=== PATIENT | female | born 1935 | race Caucasian/White ===

== ENCOUNTER 2018-05-24 10:47 | Outpatient (CLI) | payer MEDICARE, BC ==
[2018-05-24] MEDS ORDERED: IOVERSOL 320 100 ML VIAL IVP ONE ×2 (11:01→12:59)
[2018-05-24] MEDS ORDERED: IOVERSOL 320 50 ML VIAL ONE (11:01)
[2018-05-24] MEDS ORDERED: IOVERSOL 320 50 ML VIAL PO ONE (13:19)
--- NOTE | 2018-05-24 13:47 | CT Report ---
Reason: ABDOMINAL DISTENSION (GASEOUS) Procedure Date: 05/24/2018 Accession Number: [id number] / [id number] Procedure: CT - Abdomen/Pelvis W/ CPT Code: FULL RESULT: EXAM: CT ABDOMEN AND PELVIS EXAM DATE: 05/24/2018 12:21 PM. CLINICAL HISTORY: ABDOMINAL DISTENSION (GASEOUS). COMPARISONS: ABD/PEL 02/24/2007 10:17 AM. TECHNIQUE: Routine helical CT imaging was performed through the abdomen and pelvis. IV contrast: 85 mL Optiray 320. Enteric contrast: Yes. Reconstructions: Coronal and sagittal. In accordance with CT protocol optimization, one or more of the following dose reduction techniques were utilized for this exam: automated exposure control, adjustment of mA and/or KV based on patient size, or use of iterative reconstructive technique. FINDINGS: Lung Bases: Mild amount of scarring versus atelectasis at the left lung base. Liver: Mild periportal edema. Gallbladder/Bile Ducts: Cholelithiasis and mild intrahepatic biliary ductal dilation with the CBD measuring up to 1.1 cm, greater than normal. Spleen: Normal. Pancreas: The pancreatic body is relatively atrophic. The pancreatic head is difficult to evaluate due to lack of fat planes. Adrenal Glands: Normal. Kidneys: Normal. No masses or hydronephrosis. Peritoneal Cavity/Bowel: No free fluid, free air or adenopathy. No masses or acute inflammatory process. Pelvic Organs: Evaluation limited by streak artifact from orthopedic hardware. The bladder and visualized pelvic organs are within normal limits. Vasculature: No aneurysms or other significant abnormality. Bones: Moderate to severe levoconvex lumbar scoliosis centered about L2. 7 mm anterolisthesis of L4 on L5 with left-sided pars defect. Bilateral hip arthroplasty. No aggressive osseous lesions are detected. Other: None. IMPRESSION: Biliary ductal dilation and cholelithiasis. Correlate to laboratory markers to determine whether workup for choledocholithiasis or other distal biliary obstruction is warranted. RADIA
== END 2018-05-24 10:48 | disposition home or self-care (01) ==
LOC: DI 10:47
PROVIDERS: ATTEND Physician Assistant
DX: K80.20 Calculus of gallbladder without cholecystitis without obstruction (principal)
CPT/HCPCS: 74177; Q9967

== ENCOUNTER 2019-05-21 16:28 | Outpatient (CLI) | payer MEDICARE, BC ==
--- NOTE | 2019-05-22 14:26 | XRAY Report ---
Reason: PAIN IN RT KNEE Procedure Date: 05/21/2019 Accession Number: [id number] / [id number] Procedure: XR - Knee 3 View RT CPT Code: Final Report FULL RESULT: EXAM: RIGHT KNEE RADIOGRAPHY EXAM DATE: 05/21/2019 04:54 PM. CLINICAL HISTORY: PAIN IN RT KNEE. History of meniscus surgery. COMPARISON: None. TECHNIQUE: 3 views. FINDINGS: Bones: Normal. No fractures or bone lesions. Joints: Mild medial tibiofemoral compartment and patellofemoral compartment joint space narrowing and osteophyte formation. No subluxation. No effusion. Soft Tissues: Normal. No soft tissue swelling. IMPRESSION: Mild medial tibiofemoral compartment and patellofemoral compartment right knee osteoarthritis. RADIA
== END 2019-05-21 16:29 | disposition home or self-care (01) ==
LOC: DI 16:28
PROVIDERS: ATTEND Physician Assistant
DX: M17.11 Unilateral primary osteoarthritis, right knee (principal)

== ENCOUNTER 2019-07-09 16:17 | Outpatient (CLI) | payer MEDICARE, BC | END 2019-07-09 16:18 | disposition home or self-care (01) | LOC: COV 16:17 | PROVIDERS: ATTEND Family Medicine | DX: R05 Cough (principal); R50.9 Fever, unspecified | CPT/HCPCS: 81599; U0002 ==

== ENCOUNTER 2020-05-26 10:38 | Day surgery (SDC) | payer MEDICARE, BC ==
[2020-05-26] MEDS ORDERED: LACTATED RINGERS 1,000 ML IV ONE (11:11)
[2020-05-26] MEDS ORDERED: MIDAZOLAM 2 MG/2 ML VIAL ONE ×2 (13:21→13:48)
[2020-05-26] MEDS ORDERED: fentaNYL 100 MCG/2 ML VIAL ONE ×2 (13:22→13:51)
[2020-05-26] MEDS ORDERED: LACTATED RINGERS 150 ML IV ONE (13:58)
[2020-05-26 15:44] VITALS: BP 116/49
== END 2020-05-26 10:39 | disposition home or self-care (01) ==
LOC: SDS 10:38
PROVIDERS: ATTEND Surgery
PROC: 0DBP8ZX Excision of Rectum, Via Natural or Artificial Opening Endoscopic, Diagnostic (ICD-10-PCS; principal; 2020-05-26 11:30)
DX: K62.5 Hemorrhage of anus and rectum (principal); K62.3 Rectal prolapse; D12.8 Benign neoplasm of rectum; R15.9 Full incontinence of feces; K21.9 Gastro-esophageal reflux disease without esophagitis; D64.9 Anemia, unspecified
CPT/HCPCS: 45380; J7120

== ENCOUNTER 2020-06-22 15:29 | Outpatient (CLI) | payer MEDICARE, BC ==
[2020-06-22 16:02] LABS: BASOPHILS # (AUTO) 0.1 10^3/uL (0.0-0.1); EOSINOPHILS # (AUTO) 0.3 10^3/uL (0.0-0.7); EOSINOPHILS % (AUTO) 3.3 %; HCT - HEMATOCRIT 40.4 % (37.0-47.0); HGB - HEMOGLOBIN 13.1 g/dL (12.0-16.0); LYMPHOCYTES # (AUTO) 1.9 10^3/uL (1.5-3.5); LYMPHOCYTES % (AUTO) 23.8 %; MEAN CORPUSCULAR HEMOGLOBIN 32.7 pg (27.0-31.0); MEAN CORPUSCULAR HGB CONC 32.4 g/dL (32.0-36.0); MEAN CORPUSCULAR VOLUME 100.7 fL (81.0-99.0); MEAN PLATELET VOLUME 9.3 fL (7.9-10.8); MONOCYTES # (AUTO) 0.7 10^3/uL (0.0-1.0); MONOCYTES % (AUTO) 8.8 %; NEUTROPHILS # (AUTO) 5.1 10^3/uL (1.5-6.6); NEUTROPHILS % (AUTO) 62.9 %; PLT - PLATELET COUNT 230 10^3/uL (130-450); RED BLOOD COUNT 4.01 10^6/uL (4.20-5.40); RED CELL DISTRIBUTION WIDTH 14.4 % (12.0-15.0); WHITE BLOOD COUNT 8.1 x10^3/uL (4.8-10.8)
[2020-06-22 16:14] LABS: ALBUMIN 4.1 g/dL (3.2-5.5); ALBUMIN/GLOBULIN RATIO 1.3 (1.0-2.2); BILIRUBIN,TOTAL 0.7 mg/dL (0.2-1.0); CALCIUM 9.6 mg/dL (8.5-10.3); CREATININE 0.9 mg/dL (0.4-1.0); POTASSIUM 4.2 mmol/L (3.5-5.0); TOTAL PROTEIN 7.3 g/dL (6.7-8.2)
[2020-06-22 16:36] LABS: INR 0.9 (0.8-1.2); PT - PROTHROMBIN TIME 10.5 secs (9.9-12.6)
== END 2020-06-22 15:30 | disposition home or self-care (01) ==
LOC: LAB 15:29
PROVIDERS: ATTEND Surgery
DX: K62.5 Hemorrhage of anus and rectum (principal)
CPT/HCPCS: 80053; 85025; 85610

== ENCOUNTER 2020-07-01 09:48 | Outpatient (CLI) | payer MEDICARE, BC ==
[2020-07-01] MEDS ORDERED: GADOBUTROL 10 MMOL/10 ML VIAL ONE (10:33)
[2020-07-01] MEDS ORDERED: GADOBUTROL 10 MMOL/10 ML VIAL IVP ONE (13:16)
--- NOTE | 2020-07-01 17:04 | MRI Report ---
PROCEDURE: Pelvis W/WO INDICATIONS: RECTAL POLYP TECHNIQUE: Coronal HASTE, sagittal T2 FSE, axial T1 FSE, axial and coronal nonbreath-hold T2 FSE. Axial dynamic VIBE during administration of contrast. Post-contrast axial and coronal VIBE/2-D FLASH with fat sat uration from the iliac crests to the symphysis. Optional diffusion weighted imaging and ADC may be p erformed. COMPARISON: CT abdomen pelvis 05/24/2018 FINDINGS: Image quality: Quite degraded secondary to extensive artifact from bilateral hip arthroplasty compone nts. Postcontrast sequences were nondiagnostic. Diffusion imaging was not performed.. Rectum: A few sagittal sequences raise the possibility of a partially polypoid and partially eccentric sessil e rectal mass. Polypoid component arises from the 11 to 12:00 position, and asymmetric wall thickenin g is seen from the 2 to 5:00 position along the left lateral wall. No dominant mucinous component. En tire craniocaudal length of the abnormality is 3.7 cm. Distance to the anal verge is about 3 cm and i t arises at the top of sphincter complex at the anorectal junction. It is predominantly below the ant erior peritoneal reflection and tumor is just above the puborectalis sling. T staging: Depth of extramural invasion: 0 mm. Extramural vascular invasion: None Pelvic organ involvement: Genitourinary: Fascial plane at the rectovaginal septum appears maintained the is extremely thin. Pelvic sidewall (obturator internus, piriformis, ischiococcygeus muscles): None Pelvic floor (pubococcygeus, iliococcygeus, puborectalis, levator plate): Mild pelvic floor prolapse Sacrum: None Vessels (internal and external iliac arteries and veins): Normal Nerves (lumbosacral nerve roots): None Regional lymph nodes (mesorectal, inguinal, iliac): None IMPRESSION: 1. Limited study secondary to hip arthroplasty artifact. 2. Possible low rectal tumor as described with T staging of likely 1-2. This could possibly represent redundant mucosa as postcontrast images were nondiagnostic. Correlation with colonoscopy report and exam is recommended. Reviewed by: Julissa Resendez MD on 07/01/2020 5:02 PM PST Approved by: Julissa Resendez MD on 07/01/2020 5:02 PM PST Station ID: [id number]
== END 2020-07-01 09:49 | disposition home or self-care (01) ==
LOC: DI 09:48
PROVIDERS: ATTEND Surgery
DX: K62.1 Rectal polyp (principal)
CPT/HCPCS: 72197; A9585

== ENCOUNTER 2020-07-07 14:27 | Outpatient (CLI) | payer MEDICARE, BC ==
[2020-07-07 15:08] LABS: BASOPHILS # (AUTO) 0.1 10^3/uL (0.0-0.1); BASOPHILS % (AUTO) 0.7 %; EOSINOPHILS # (AUTO) 0.3 10^3/uL (0.0-0.7); EOSINOPHILS % (AUTO) 3.4 %; HCT - HEMATOCRIT 37.6 % (37.0-47.0); HGB - HEMOGLOBIN 12.6 g/dL (12.0-16.0); LYMPHOCYTES # (AUTO) 1.8 10^3/uL (1.5-3.5); LYMPHOCYTES % (AUTO) 23.8 %; MEAN CORPUSCULAR HEMOGLOBIN 32.9 pg (27.0-31.0); MEAN CORPUSCULAR HGB CONC 33.5 g/dL (32.0-36.0); MEAN CORPUSCULAR VOLUME 98.2 fL (81.0-99.0); MEAN PLATELET VOLUME 9.2 fL (7.9-10.8); MONOCYTES # (AUTO) 0.6 10^3/uL (0.0-1.0); MONOCYTES % (AUTO) 8.4 %; NEUTROPHILS # (AUTO) 4.8 10^3/uL (1.5-6.6); NEUTROPHILS % (AUTO) 63.4 %; PLT - PLATELET COUNT 216 10^3/uL (130-450); RED BLOOD COUNT 3.83 10^6/uL (4.20-5.40); RED CELL DISTRIBUTION WIDTH 14.7 % (12.0-15.0); WHITE BLOOD COUNT 7.6 x10^3/uL (4.8-10.8)
[2020-07-07 15:16] LABS: INR 0.9 (0.8-1.2); PT - PROTHROMBIN TIME 10.5 secs (9.9-12.6)
[2020-07-07 15:23] LABS: ALBUMIN 3.9 g/dL (3.2-5.5); ALBUMIN/GLOBULIN RATIO 1.3 (1.0-2.2); BILIRUBIN,TOTAL 0.8 mg/dL (0.2-1.0); CALCIUM 9.5 mg/dL (8.5-10.3); CREATININE 0.9 mg/dL (0.4-1.0); POTASSIUM 3.9 mmol/L (3.5-5.0); TOTAL PROTEIN 6.8 g/dL (6.7-8.2)
== END 2020-07-07 14:28 | disposition home or self-care (01) ==
LOC: LAB 14:27
PROVIDERS: ATTEND Surgery
DX: Z01.812 Encounter for preprocedural laboratory examination (principal); K62.5 Hemorrhage of anus and rectum; K62.89 Other specified diseases of anus and rectum; Z20.822 Contact with and (suspected) exposure to COVID-19
CPT/HCPCS: 36415; 80053; 85025; 85610; U0004

== ENCOUNTER 2020-07-09 08:55 | Observation (INO) | payer MEDICARE, BC ==
[2020-07-09] MEDS ORDERED: metroNIDAZOLE 500 MG/100 ML 500 MG/100 ML BAG ONE (09:07)
[2020-07-09] MEDS ORDERED: CIPROFLOXACIN 400 MG/200 ML 400 MG/200 ML BAG IV ONE (09:08)
[2020-07-09] MEDS ORDERED: BUPIVACAINE 0.5% PF 30 ML VIAL ONE (09:26)
[2020-07-09] MEDS ORDERED: LACTATED RINGERS 1,000 ML IV ONE (09:43)
--- NOTE | 2020-07-09 10:17 | ANESTHESIA ---
Pre-Anesthesia VS, & Labs - Diagnosis rectal mass - Procedure transanal endoscopic polypectomy Vital Signs: Temp Pulse Resp BP Pulse Ox 36.8 C 79 18 163/79 H 95 07/09/20 09:00 07/09/20 09:00 07/09/20 09:00 07/09/20 09:00 07/09/20 09:00 Height: 5 ft 1 in Weight (kg): 51.5 kg Body Mass Index: 21.4 BMI Classification: Healthy weight - NPO >8 hours - Is Patient ?: No Home Medications and Allergies Estrodial 1 mg PO DAILY MDD 1 10/13/14 Levothyroxine Sodium 50 mcg PO DAILY 10/13/14 Montelukast [Singulair] 10 mg PO DAILY 10/13/14 Fluticasone/Salmeterol [Advair 100-50 Diskus] 1 each IH DAILY PRN 07/25/15 Albuterol Sulfate [Proair Hfa Inhaler] 1 - 2 puffs INH Q4H PRN 05/26/20 Aspirin [Aspirin EC] 05/26/20 Fluticasone/Salmeterol [Advair 100-50 Diskus] 1 puffs INH DAILY 05/26/20 Magnesium 250 mg PO DAILY 05/26/20 Allergies/Adverse Reactions: Allergies Allergy/AdvReac Type Severity Reaction Status Date / Time No Known Drug Allergies Allergy Verified 05/26/20 10:58 Anes History & Medical History - Anesthetic History Anesthesia Complications: reports: No previous complications - Medical History Cardiovascular: reports: Hypertension Pulmonary: reports: Asthma (uses rescue inhaler) Gastrointestinal: reports: GI bleed Urinary: reports: None Neuro: reports: None Musculoskeletal: reports: Osteoarthritis, Osteoporosis Endocrine/Autoimmune: reports: HyPOthyroidism Blood Disorders: reports: None Skin: reports: Other Smoking Status: Never smoker Psychosocial: reports: Alcohol (1-2 daily) History of Cancer?: No - Surgical History General: reports: Colonoscopy Gynecologic: reports: Hysterectomy Orthopedic: reports: Hip replacement, Knee replacement, Other Exam General: Alert, Oriented x3, Cooperative, No acute distress Dental: WNL, Other (prominent incisors) Mouth Openin Fingerbreadth Neck Mobility: Normal Mallampati classification: II Thyromental Distance: 4-6 cm Respiratory: Lungs clear, Normal breath sounds, No respiratory distress, No accessory muscle use Cardiovascular: Regular rate, Normal S1, Normal S2, No murmurs Mental/Cognitive Status: Alert/Oriented X3, Normal for patient Plan Anesthesia Type: General Consent for Procedure(s) Verified and Reviewed: Yes Code Status: Attempt Resuscitation ASA classification: 2-Mild systemic disease Is this case an emergency?: No
[2020-07-09] MEDS ORDERED: ROCURONIUM 50 MG/5 ML VIAL ONE (10:30)
[2020-07-09] MEDS ORDERED: PROPOFOL 200 MG/20 ML VIAL IVP ONE (10:30)
[2020-07-09] MEDS ORDERED: fentaNYL 100 MCG/2 ML VIAL ONE (10:30)
[2020-07-09] MEDS ORDERED: BUPIVACAINE 0.5% PF 30 ML VIAL SUBQ ONE (10:34)
[2020-07-09] MEDS ORDERED: MIDAZOLAM 2 MG/2 ML VIAL ONE (11:21)
[2020-07-09] MEDS: LACTATED RINGERS 1,000 ML IV ONE (12:07)
[2020-07-09] MEDS ORDERED: ONDANSETRON 4 MG/2 ML VIAL IVP PRN (13:09)
[2020-07-09] MEDS ORDERED: HYDROmorphone 0.5 MG/0.5 ML SYRINGE IVP PRN ×2 (13:09→13:41)
[2020-07-09] MEDS ORDERED: NEOSTIGMINE 1 MG/1 ML 10 ML MDV ONE (13:11)
[2020-07-09] MEDS ORDERED: GLYCOPYRROLATE 1 MG/5 ML VIAL ONE (13:11)
[2020-07-09] MEDS ORDERED: FLUTICASONE IH PRN (13:13)
[2020-07-09] MEDS ORDERED: SALMETEROL IH PRN (13:13)
--- NOTE | 2020-07-09 13:17 | OPERATIVE REPORT ---
Operative Report - General Procedure Date: 07/09/20 Planned Procedure: 1. Exam under anesthesia 2. Rigid proctoscopy 3. Transanal minimally invasive surgery AKA TAMIS 4. Closure of rectal defect post procedure Pre-Op Diagnosis: Large rectal polyp, adenomatous; T1/T2 by preop MRI; no lymphadenopathy Procedure Performed: 1. Exam under anesthesia 2. Rigid proctoscopy 3. Transanal minimally invasive surgery AKA TAMIS 4. Closure of rectal defect post procedure Post Op Diagnosis: Same; successful transanal minimally invasive resection, patent lumen - Procedure Note Primary Surgeon: Harsha Secondary Surgeon: Emily Anesthesia Provider: Tayler Anesthesia Technique: General ET tube Pathology: 1. Large rectal polyp, approximately 6 cm excised (at approximately 5 cm from the verge) 2. Distal posterior margin sent separate from above listed mass Estimated Blood Loss (mL): 20 Drain/Tube Type: Other (Anal packing Gelfoam wrapped with Surgicel in the form of a tampon with suture. Plan for removal postoperative day #1.) Indications: 1. Large prolapsing rectal mass 2. Adenomatous by preoperative pathology 3. Preoperative imaging consistent with T1/T2 without any concerning lymphadenopathy 3. Ongoing bleeding 4. Appropriate for transanal minimally invasive surgical resection, significantly favoring versus transabdominal approach absent evidence of malignancy at this time. 5. Multiple comorbid states Findings: 1. At approximately 5 cm above the anal verge a large 6 cm three-quarter circumferential mass semisessile. 2. This was removed en bloc full-thickness with additional margin taken from the posterior distal aspect where there was remnant adenomatous tissue visible. 3. Closed traverse Randall without any luminal narrowing confirmed post procedure by both proctoscopic and laparoscopic evaluation. 4. A hemostatic procedure at conclusion Complications: None - Other Other Information/Narrative: Patient was taken to the operating room placed supine on the operating table. Informed consent was already obtained. Patient was placed for Hoskins catheter. Patient was placed in lithotomy with Saroj stirrups. Patient was offloaded and padded as necessary. Patient had already been induced for general endotracheal anesthesia. Timeout was called and agreed to by all in the room. The patient was prepped and draped in the usual sterile fashion. Given the height of the lesion, mid rectum, approximately 5 cm above the anal verge, we plan to proceed with transanal minimally invasive surgery SIMAA TAMVIRAJ. At this time the applied GEL port was placed within the anus. This was sutured in place using silk ligature. 4 ports were placed through the gel appliance. At this time we proceeded with insufflation of the rectum with the GelPort in place to proceed with transanal excision. We maintained insufflation without any complication between 15 and 20 mmHg. We noted the lesion in extending from the right lateral anterior through the left lateral and left posterior aspects of the mid rectum; this was near three- quarter semicircumferential approximately 6 cm in total length transversely and approximately 3 to 4 cm in width longitudinally. We proceeded to perform transanal excision involving muscularis full-thickness to assure complete definitive resection. This lesion was again approximately 6 cm x 3 cm and irregular. Again absent lymphadenopathy, and notable for depth of invasion most likely T1/T2, together with biopsy consistent with adenomatous changes thus far, transanal excision by IRMA was an appropriate approach. We slowly elevated the mass full-thickness exposing the mesorectum. Hemostasis was achieved. We ultimately used the laparoscopic LigaSure device for additional hemostasis. We proceeded with approaching the large mass from the right lateral and anterior aspect of the lesion. We sequentially had to adjust camera which was 30 degree multiply across ports as were instruments removed among sports in order to address this large mid rectal mass. We thereafter proceeded with beginning from the left posterior lateral aspect of the lesion and sequentially began to meet the right lateral resection margins along the anterior midline. Ultimately the mass was freed and hemostatic after using both cautery and laparoscopic LigaSure. Additional margins ultimately were taken after using laparoscopic cautery to resect the polyp superiorly and laterally and sent separately. This margin was in the left posterior distal aspect of the resection bed Please note the polyp was removed prior to closure and we temporarily desufflated the large intestine. Additional margins were taken directly through the transanal GelPort. The area was extensively irrigated and aspirated clear. Again this was removed en bloc full-thickness with additional margin taken from the posterior distal aspect where there was remnant adenomatous tissue visible. With the entirety of the polyp removed we proceeded to perform closure of the rectal defect using a strata fix suture. This was performed laparoscopically and oversewn. Please note this was performed transversely in order to to avoid luminal narrowing. We performed the Stratus fix traverse closer bidirectionally starting from the left posterior lateral progressing to midline leaving a tail and then beginning from the right anterolateral aspect. Once the suture lines were met they were tied in the middle with both needles retrieved without complication. Using the laparoscope we evaluated proximally and distally without any remnant tumor. We desufflated after confirming area was hemostatic. We proceeded to perform proctoscopy as per below. Please note after desufflation all counts for sponges needles and instruments were correct at the conclusion of this case. Laparoscopic needle(s) were retrieved and accounted for. I was present for the entirety of this operative intervention. Attending Physician Attestation Physical Presence Documentation I was physically present during the service to the patient and/or personally examined the patient, and I was directly involved in the management of the care provided to the patient. Procedure note: Preoperative diagnosis: Rectal polyp status post transanal minimally invasive surgery Postoperative diagnosis: Same Procedure: Flexible proctosigmoidoscopy Surgeon: Javier Mcleod M.D. Indication: Evaluate for luminal narrowing Consent was obtained from the patient. Verification of patient identification and procedure was performed. Timeout was called and agreed to by all in the room. Procedure detail: Patient was maintained in lithotomy position on the operating table. Inspection and digital rectal exam were performed, followed by insertion of the lubricated proctosigmoidoscope. The scope was advanced under direct vision with air insufflation. The lumen and mucosa was then examined carefully. The quality of bowel prep was good. The proctosigmoidoscope was then withdrawn. Findings: Patent post resection rectal lumen with transverse closure intact. Hemostatic. The transverse closure was approximately 7 cm if not longer circumferentially, patent, hemostatic, without any significant luminal narrowing accommodating the proctoscope without any complication. Conclusions: The patient tolerated procedure well and was informed regarding the above listed findings. Packing was placed in the anus in the form of a tampon constructed of Gelfoam wrapped with 2 pieces of 4 x 8 Surgicel tied with Vicryl. This was planned for removal on postoperative day #1. Patient would be emitted overnight for observation. Hoskins catheter was maintained. I was present for the entirety of this operative intervention. Please note that voice recognition software was used to transcribe this note and inadvertent errors might persist in spite of review and editing. I am obliged to you for your attention. I am thankful to you for allowing me to participate with you in this care of this patient.
[2020-07-09] MEDS ORDERED: NALOXONE 0.4 MG/ML VIAL IVP PRN (13:41)
[2020-07-09] MEDS ORDERED: fentaNYL 100 MCG/2 ML VIAL IVP PRN (13:41)
[2020-07-09] MEDS ORDERED: ATROPINE ABBOJECT 1 MG/10 ML SYRINGE IVP PRN (13:41)
[2020-07-09] MEDS ORDERED: ePHEDrine 50 MG/ML VIAL IVP PRN (13:41)
[2020-07-09] MEDS ORDERED: LACTATED RINGERS 1,000 ML IV SCH (14:00)
[2020-07-09] MEDS: oxyCODONE 5 MG TABLET PO PRN ×2 (14:32→19:22)
[2020-07-09] MEDS: CIPROFLOXACIN 400 MG/200 ML 400 MG/200 ML BAG IV SCH (14:36)
--- NOTE | 2020-07-09 14:49 | PHARMACY PROGRESS NOTE ---
- Best Possible Medication History Admit Date and Time: Processed by: Pharmacy Medication History completed: Yes Patient Interview: Completed Secondary Source(s): Written medication list, Physician records, Pharmacy records, Insurance records (PATIENT INTERVIEWED BY PHARMACY. PATIENT ABLE TO CONFIRM HOME MEDICATIONS ) As the person ultimately responsible for medication therapy, providers are able to order a medication from an existing home medication list in [facility] via the "Reconcile Routine" prior to Confirmation of that medication by director decision support. Such practice is discouraged except when the physician, in their clinical judgment, deems that a medical need exists for a medication without regard to previous use.
[2020-07-09] MEDS: IPRATROPIUM 0.2 MG/ML NEB INH SCH ×2 (15:03→19:40)
[2020-07-09] MEDS: metroNIDAZOLE 500 MG/100 ML 500 MG/100 ML BAG IV SCH ×2 (15:52→23:34)
[2020-07-09] MEDS ORDERED: BENZOCAINE/MENTHOL LOZENGE MM PRN (16:04)
[2020-07-09] MEDS: D5NS W/20 MEQ KCL 1,000 ML IV SCH (17:01)
[2020-07-09] MEDS: methocarbamoL 500 MG TABLET PO SCH ×2 (17:05→23:34)
[2020-07-09] MEDS: METOCLOPRAMIDE 10 MG/2 ML VIAL IVP SCH ×2 (17:06→23:34)
--- NOTE | 2020-07-09 17:12 | ANESTHESIA POST OP EVALUATION ---
Anesthesia Post Eval - Post Anesthesia Eval Vitals: Last Vital Signs Temp 36.6 C 07/09/20 16:06 Pulse 74 07/09/20 16:06 Resp 18 07/09/20 16:06 BP 147/57 H 07/09/20 16:06 Pulse Ox 99 07/09/20 16:06 CV Function Including HR & BP: positive: Stable Pain Control: positive: Satisfactory Nausea & Vomiting: positive: Negative Mental Status: positive: Baseline Respiratory Status: Airway Patent Hydration Status: Satisfactory Anesthesia Complications: positive: None
[2020-07-09] MEDS: ALBUTEROL NEB 2.5 MG/3 ML INH PRN (19:40)
[2020-07-09] MEDS: BUDESONIDE 0.5 MG/2 ML NEB INH SCH (19:40)
[2020-07-09] MEDS: polyethylene glycoL 3350 17 GM PACKET PO SCH (20:40)
[2020-07-09] MEDS: DOCUSATE SODIUM 100 MG CAPSULE PO SCH (20:40)
[2020-07-10] MEDS: D5NS W/20 MEQ KCL 1,000 ML IV SCH ×3 (00:46→14:29)
[2020-07-10] MEDS: CIPROFLOXACIN 400 MG/200 ML 400 MG/200 ML BAG IV SCH ×2 (01:30→14:27)
[2020-07-10] MEDS: oxyCODONE 5 MG TABLET PO PRN ×2 (04:36→08:54)
[2020-07-10 04:54] LABS: BASOPHILS % (AUTO) 0.3 %; EOSINOPHILS # (AUTO) 0.1 10^3/uL (0.0-0.7); EOSINOPHILS % (AUTO) 1.1 %; HCT - HEMATOCRIT 32.7 % (37.0-47.0); HGB - HEMOGLOBIN 10.5 g/dL (12.0-16.0); LYMPHOCYTES # (AUTO) 1.3 10^3/uL (1.5-3.5); LYMPHOCYTES % (AUTO) 12.7 %; MEAN CORPUSCULAR HEMOGLOBIN 32.4 pg (27.0-31.0); MEAN CORPUSCULAR HGB CONC 32.1 g/dL (32.0-36.0); MEAN CORPUSCULAR VOLUME 100.9 fL (81.0-99.0); MEAN PLATELET VOLUME 9.8 fL (7.9-10.8); MONOCYTES # (AUTO) 0.8 10^3/uL (0.0-1.0); MONOCYTES % (AUTO) 7.9 %; NEUTROPHILS # (AUTO) 8.2 10^3/uL (1.5-6.6); NEUTROPHILS % (AUTO) 77.5 %; PLT - PLATELET COUNT 180 10^3/uL (130-450); RED BLOOD COUNT 3.24 10^6/uL (4.20-5.40); RED CELL DISTRIBUTION WIDTH 14.7 % (12.0-15.0); WHITE BLOOD COUNT 10.5 x10^3/uL (4.8-10.8)
[2020-07-10 05:10] LABS: ALBUMIN 2.8 g/dL (3.2-5.5); ALBUMIN/GLOBULIN RATIO 1.2 (1.0-2.2); BILIRUBIN,TOTAL 1.1 mg/dL (0.2-1.0); CALCIUM 7.7 mg/dL (8.5-10.3); CREATININE 0.8 mg/dL (0.4-1.0); POTASSIUM 3.7 mmol/L (3.5-5.0); TOTAL PROTEIN 5.1 g/dL (6.7-8.2)
[2020-07-10] MEDS: METOCLOPRAMIDE 10 MG/2 ML VIAL IVP SCH ×3 (06:07→17:57)
[2020-07-10] MEDS: methocarbamoL 500 MG TABLET PO SCH ×3 (06:07→17:57)
[2020-07-10] MEDS ORDERED: LEVOTHYROXINE 25 MCG TABLET PO SCH (07:00)
[2020-07-10] MEDS: IPRATROPIUM 0.2 MG/ML NEB INH SCH ×3 (07:31→15:21)
[2020-07-10] MEDS: BUDESONIDE 0.5 MG/2 ML NEB INH SCH (07:31)
[2020-07-10] MEDS ORDERED: MAGNESIUM OXIDE 400 MG TABLET PO SCH (08:00)
[2020-07-10] MEDS: polyethylene glycoL 3350 17 GM PACKET PO SCH (08:54)
[2020-07-10] MEDS: metroNIDAZOLE 500 MG/100 ML 500 MG/100 ML BAG IV SCH ×2 (08:54→16:21)
[2020-07-10] MEDS: DOCUSATE SODIUM 100 MG CAPSULE PO SCH (08:54)
[2020-07-10] MEDS ORDERED: SALMETEROL INH SCH (09:00)
[2020-07-10] MEDS ORDERED: MONTELUKAST 10 MG TABLET PO SCH (09:00)
[2020-07-10] MEDS ORDERED: FLUTICASONE INH SCH (09:00)
[2020-07-10] MEDS ORDERED: estradioL 1 MG TABLET PO SCH (09:00)
[2020-07-10] MEDS: ALBUTEROL NEB 2.5 MG/3 ML INH PRN (11:12)
--- NOTE | 2020-07-10 15:33 | Discharge Plan ---
Discharge Plan Problem Reviewed?: Yes Disposition: Home, Self Care Condition: Good Prescriptions: Ciprofloxacin [Cipro] 250 mg PO Q12H #14 tablet Docusate Sodium 100Mg Capsule [Colace 100Mg Capsule] 100 mg PO DAILY #60 tab metroNIDAZOLE [Flagyl] 250 mg PO Q8H #21 tablet polyethylene glycoL 3350 [Miralax] 17 gm PO DAILY #238 ml Diet: Soft Activity Restrictions: Wt Bearing as Tolerated Shower Restrictions: Yes Driving Restrictions: Yes Weight Bearing: Full Weight Instruction Topics: Polyethylene Glycol powder, Metronidazole tablets or capsules, Ciprofloxacin tablets, ED Retention Urinary Female, Docusate capsules Health Concerns: Please contact [facility] for simmons management at [phone], Appt as yet not made - please fax Discharge plan to [phone] Please follow up with me in 2 weeks, [facility] PATIENT S/P: Pre-Op Diagnosis: Large rectal polyp, adenomatous; T1/T2 by preop MRI; no lymphadenopathy Procedure Performed: 1. Exam under anesthesia 2. Rigid proctoscopy 3. Transanal minimally invasive surgery ANTONIO SOLIS 4. Closure of rectal defect post procedure Post Op Diagnosis: Same; successful transanal minimally invasive resectionfidel Assessment: Please contact [facility] for simmons management at [phone], Appt as yet not made - please fax Discharge plan to [phone] Please follow up with me in 2 weeks, [facility] POST ANORECTAL SURGICAL INSTRUCTIONS: 1. Resume anticoagulation, if any, as per specific instructions. Call for any bleeding before resuming anticoagulation. 2. The patient to call for fevers, significant bleeding, severe pain or urinary retention. 3. The patient was advised to remove anal packing on the a.m. of postoperative day #1. 4. The patient to continue with warm tub soaks twice daily unless fistula plug is placed, in which case no submersive baths. 5. The patient to proceed with a high-fiber diet as recommended with mechanical fiber supplementation. 6. The patient to proceed with a bowel regimen including Colace, given narcotics for postoperative pain, and MiraLAX for salvage if fails to have bowel movement within 2 days of operative intervention. If no bowel movement within 3 days, patient to call service/office. 7. The patient to follow up with me in 10 days post procedure. 8. The patient to continue with antibiotics as instructed if prescribed. 9. Patient was advised that if instilled with Exparel (Liposomal Bupivicaine) no lidocaine for 96 hours, and arm band to be left in place as indicative of this. 10. No driving while taking narcotics, and avoid exertional activity in the immediate post-operative period. No Smoking: If you smoke, Please STOP! Call for help. Follow-up with: Javier Mcleod MD [Provider Admit Priv/Credential] -
--- NOTE | 2020-07-10 16:20 | DISCHARGE SUMMARY ---
"Discharge Summary Admit Date: 07/09/20 Discharge Date: 07/10/20 Discharging Provider: Harsha Code Status: Attempt Resuscitation Condition at Discharge: Good Discharge Disposition: 01 Home, Self Care - DIAGNOSES Admission Diagnoses: 1. Rectal mass T1/T2 without lymphadenopathy 2. Advanced age 3. Multiple comorbid states 4. Acute on chronic blood loss anemia Discharge Diagnoses with Status of Each Condition: 1. Rectal mass T1/T2 without lymphadenopathy - RESECTED/RESOLVED 2. Advanced age - STABLE/UNCHANGED 3. Multiple comorbid state- STABLE/UNCHANGED 4. Acute on chronic blood loss anemia - STABLE/UNCHANGED - HPI History of Present Illness: 84-year-old female who presents with suspected rectal prolapse that on colonoscopy revealed a large rectal mass per below. Candidate for transanal minimally invasive surgery AKLuigi SOLIS Indications: 1. Large prolapsing rectal mass 2. Adenomatous by preoperative pathology 3. Preoperative imaging consistent with T1/T2 without any concerning lymphadenopathy 3. Ongoing bleeding 4. Appropriate for transanal minimally invasive surgical resection, significantly favoring versus transabdominal approach absent evidence of malignancy at this time. 5. Multiple comorbid states - CONSULTS | PROCEDURES Consultations: NONE Procedures: Pre-Op Diagnosis: Large rectal polyp, adenomatous; T1/T2 by preop MRI; no lymphadenopathy Procedure Performed: 1. Exam under anesthesia 2. Rigid proctoscopy 3. Transanal minimally invasive surgery AKLuigi SOLIS 4. Closure of rectal defect post procedure Post Op Diagnosis: Same; successful transanal minimally invasive resection, patent lumen Findings: 1. At approximately 5 cm above the anal verge a large 6 cm three-quarter circumferential mass semisessile. 2. This was removed en bloc full-thickness with additional margin taken from the posterior distal aspect where there was remnant adenomatous tissue visible. 3. Closed traverse Randall without any luminal narrowing confirmed post procedure by both proctoscopic and laparoscopic evaluation. 4. A hemostatic procedure at conclusion - HOSPITAL COURSE Hospital Course: Patient admitted following operative intervention as listed above. Admitted for 23-hour observation for pain management and surveillance for possible postprocedural bleed given the size of the resection and risk of acute on chronic blood loss anemia. She was attempted for trial of void on postoperative day #1 which ultimately she failed. She was replaced with a Simmons catheter and plan for outpatient follow- up with urology which was set up independently by our office staff. Patient had positive resumption of bowel function. Packing was removed. Tolerating oral intake. No significant pain management necessary. Instructions given. Patient with no hypotension tachycardia or febrile e pisodes. Other than urinary retention which was addressed with Simmons catheter, patient was appropriate for discharge with plan follow-up. Patient was maintained on oral antibiotics empirically. Had knowing concerning symptoms that would preclude discharge at this time. - ALLERGIES Allergies/Adverse Reactions: Allergies Allergy/AdvReac Type Severity Reaction Status Date / Time No Known Drug Allergies Allergy Verified 05/26/20 10:58 - MEDICATIONS Home Medications: Ambulatory Orders Medication Instructions Recorded Confirmed Levothyroxine Sodium 50 mcg PO DAILY 10/13/14 07/09/20 Montelukast [Singulair] 10 mg PO DAILY 10/13/14 07/09/20 Albuterol Sulfate [Proair Hfa 1 - 2 puffs INH Q4H PRN 05/26/20 07/09/20 Inhaler] Fluticasone/Salmeterol [Advair 1 puffs INH DAILY 05/26/20 07/09/20 100-50 Diskus] Magnesium 250 mg PO DAILY 05/26/20 07/09/20 estradioL [Estrace] 1 mg PO DAILY 07/09/20 07/09/20 Ciprofloxacin [Cipro] 250 mg PO Q12H #14 tablet 07/10/20 Docusate Sodium 100Mg Capsule 100 mg PO DAILY #60 tab 07/10/20 [Colace 100Mg Capsule] metroNIDAZOLE [Flagyl] 250 mg PO Q8H #21 tablet 07/10/20 polyethylene glycoL 3350 [Miralax] 17 gm PO DAILY #238 ml 07/10/20 - PHYSICAL EXAM AT DISCHARGE General Appearance: positive: No acute distress, Alert Eyes Bilateral: positive: Normal inspection, PERRL, EOMI ENT: positive: ENT inspection nml Neck: positive: Nml inspection Respiratory: positive: Chest non-tender, No respiratory distress, Breath sounds nml. negative: Wheezes, Rales, Rhonchi Cardiovascular: positive: Regular rate & rhythm Abdomen: positive: Non-tender, No organomegaly, No distention. negative: Tenderness, Guarding, Rebound Skin: positive: Color nml Extremities: positive: Non-tender, Full ROM, Nml appearance Neurologic/Psychiatric: positive: Oriented x3, CN's nml (2-12), Motor nml, Sensation nml, Mood/affect nml - LABS Result Diagrams: 07/10/20 04:20 07/10/20 04:20 - FOLLOW UP Follow Up: Please contact [facility] for simmons management at [phone], Appt as yet not made - please fax Discharge plan to [phone] Please follow up with me in 2 weeks, [facility] POST ANORECTAL SURGICAL INSTRUCTIONS: 1. Resume anticoagulation, if any, as per specific instructions. Call for any bleeding before resuming anticoagulation. 2. The patient to call for fevers, significant bleeding, severe pain or urinary retention. 3. The patient was advised to remove anal packing on the a.m. of postoperative day #1. 4. The patient to continue with warm tub soaks twice daily unless fistula plug is placed, in which case no submersive baths. 5. The patient to proceed with a high-fiber diet as recommended with mechanical fiber supplementation. 6. The patient to proceed with a bowel regimen including Colace, given narcotics for postoperative pain, and MiraLAX for salvage if fails to have bowel movement within 2 days of operative intervention. If no bowel movement within 3 days, patient to call service/office. 7. The patient to follow up with me in 10 days post procedure. 8. The patient to continue with antibiotics as instructed if prescribed. 9. Patient was advised that if instilled with Exparel (Liposomal Bupivicaine) no lidocaine for 96 hours, and arm band to be left in place as indicative of this. 10. No driving while taking narcotics, and avoid exertional activity in the immediate post-operative period."
[2020-07-10 19:19] VITALS: BP 164/69
== END 2020-07-10 19:15 | disposition home or self-care (01) ==
LOC: SDS 08:55 → MS2 13:54 → SDS 07-10 14:54 → MS2 07-10 14:55
PROVIDERS: ADMIT Surgery; ATTEND Surgery
PROC: 0DBP4ZZ Excision of Rectum, Percutaneous Endoscopic Approach (ICD-10-PCS; principal; 2020-07-09 10:00)
DX: D12.8 Benign neoplasm of rectum (principal); N99.89 Other postprocedural complications and disorders of genitourinary system; R33.8 Other retention of urine; Y92.234 Operating room of hospital as the place of occurrence of the external cause; D50.0 Iron deficiency anemia secondary to blood loss (chronic); J45.909 Unspecified asthma, uncomplicated; E03.9 Hypothyroidism, unspecified; Z79.51 Long term (current) use of inhaled steroids; Z79.82 Long term (current) use of aspirin; Z79.899 Other long term (current) drug therapy
CPT/HCPCS: 36415; 45171; 80053; 85025; 94640; A9270; G0378; J2765; J7120; J7626

== ENCOUNTER 2020-08-10 07:00 | Outpatient (CLI) | payer MEDICARE, BC ==
--- NOTE | 2020-08-10 15:46 | XRAY Report ---
PROCEDURE: Knee 4 View LT INDICATIONS: L KNEE PX TECHNIQUE: 4 views of the left knee(s) were acquired. COMPARISON: None. FINDINGS: Bones: No fractures or dislocations. No suspicious bony lesions. There is moderate to severe media l as well as patellofemoral compartment narrowing. Mild periarticular osteophytes are present. Minima l chondrocalcinosis. No erosions. Mild lateral subluxation. Soft tissues: Minimal joint effusion. No suspicious soft tissue calcifications. IMPRESSION: Minimal effusion with medial and patellofemoral compartment narrowing consistent with ar thritis. Reviewed by: Cristal Chan MD on 08/10/2020 3:44 PM PDT Approved by: Cristal Chan MD on 08/10/2020 3:44 PM PDT Station ID: [id number]
== END 2020-08-10 23:59 | disposition home or self-care (01) ==
LOC: DI.N 07:00
PROVIDERS: ATTEND Physician Assistant
DX: M25.562 Pain in left knee (principal); M25.462 Effusion, left knee

== ENCOUNTER 2021-08-11 13:52 | Outpatient (CLI) | payer MEDICARE, BC ==
--- NOTE | 2021-08-11 16:44 | Mammography Report ---
BILATERAL DIGITAL SCREENING MAMMOGRAM 3D/2D: 08/11/2021 CLINICAL: Routine screening. No prior exams were available for comparison. The tissue of both breasts is predominantly fatty. There is a possible irregular focal asymmetry in the left breast at 8 o'clock anterior depth. No other significant masses, calcifications, or other findings are seen in either breast. IMPRESSION: INCOMPLETE: NEEDS ADDITIONAL IMAGING EVALUATION The possible irregular focal asymmetry in the left breast is indeterminate. Additional views with po ssible ultrasound are recommended. This exam was interpreted at Station ID: [id number]. NOTE: For mammograms, a report in lay terms will be sent to the patient. Approximately 15% of breast malignancies will not be visualized mammographically. In the management of a palpable breast mass, a negative mammogram must not discourage biopsy of a clinically suspicious lesion. Electronically Signed By: Lamin Bello M.D., jr/linda:08/11/2021 15:16:03 ACR BI-RADS Category 0: Incomplete 3340F PARENCHYMAL PATTERN: (F) - The breast(s) demonstrate(s) diffuse fatty replacement. BI-RADS CATEGORY: (0) - 0 Mammo and [place] [id number] Immediate follow-up LATERALITY: (B)
== END 2021-08-11 13:53 | disposition home or self-care (01) ==
LOC: DI.S 13:52
PROVIDERS: ATTEND Nurse Practitioner Family
DX: Z12.31 Encounter for screening mammogram for malignant neoplasm of breast (principal); R92.8 Other abnormal and inconclusive findings on diagnostic imaging of breast

== ENCOUNTER 2021-11-17 10:58 | Outpatient (CLI) | payer MEDICARE, BC ==
--- NOTE | 2021-11-17 16:15 | Ultrasound Report ---
LIMITED ULTRASOUND OF LEFT BREAST: 11/17/2021 CLINICAL: Patient returns today to evaluate an asymmetry in the left breast. Comparison is made to exams dated: 11/17/2021 mammogram, 08/11/2021 mammogram, 05/17/2014 mammogram, an d 06/18/2012 mammogram - [facility]. Color flow and real-time ultrasound of the left breast 12 o'clock region were performed. Saez scale images of the real-time examination were reviewed. There is a 0.4 cm x 0.4 cm x 0.3 cm round cyst in the left breast at 12 o'clock anterior depth 3 cm f rom the nipple. This round cyst is anechoic with an abrupt boundary and posterior acoustic enhanceme nt. This correlates with mammography findings. Color flow imaging demonstrates that there is no vas cularity present. IMPRESSION: BENIGN The 0.4 cm x 0.4 cm x 0.3 cm round cyst in the left breast is consistent with a simple cyst and is be nign. Return to annual mammogram screening schedule is recommended. Findings and recommendations were conveyed to the patient at time of exam. This exam was interpreted at Station ID: [id number]. Electronically Signed By: Julissa escobar/:11/17/2021 12:30:44 Ultrasound BI-RADS: 2 Benign BI-RADS CATEGORY: (2) - 2 Mammogram [id number] return to screening LATERALITY: (B)
--- NOTE | 2021-11-17 16:15 | Mammography Report ---
UNILATERAL LEFT DIGITAL DIAGNOSTIC MAMMOGRAM 3D/2D: 11/17/2021 CLINICAL: Patient returns today to evaluate a focal asymmetry in the left breast. Comparison is made to exams dated: 08/11/2021 mammogram, 05/17/2014 mammogram, and 06/18/2012 mammogram - [facility]. The tissue of left breast is predominantly fatty. There is a 5 mm round equal density focal asymmetry with a circumscribed margin in the left breast at 12 o'clock anterior depth. This is seen in additional views. No other significant masses or calcifications are seen in the breast. IMPRESSION: INCOMPLETE: NEEDS ADDITIONAL IMAGING EVALUATION The 4 mm round equal density focal asymmetry in the left breast most likely is a cyst or a lymph node but remains indeterminate. An ultrasound is recommended. This was performed immediately following this exam. Based on the Tyrer Cuzick model (a risk assessment model) the patients lifetime risk is % and her 10 year risk is %. According to the ACR, ACS, and NCCN guidelines, an annual breast MRI exam along with mammogram is recommended if the patients lifetime risk is 20% or greater. This exam was interpreted at Station ID: [id number]. NOTE: For mammograms, a report in lay terms will be sent to the patient. Approximately 15% of breast malignancies will not be visualized mammographically. In the management of a palpable breast mass, a negative mammogram must not discourage biopsy of a clinically suspicious lesion. Electronically Signed By: Julissa escobar/:11/17/2021 12:29:33 ACR BI-RADS Category 0: Incomplete 3340F PARENCHYMAL PATTERN: (F) - The breast(s) demonstrate(s) diffuse fatty replacement. BI-RADS CATEGORY: (0) - 0 Ultrasound [id number] Immediate follow-up LATERALITY: (B)
== END 2021-11-17 10:59 | disposition home or self-care (01) ==
LOC: DI 10:58
PROVIDERS: ATTEND Nurse Practitioner Family
DX: N60.02 Solitary cyst of left breast (principal)

== ENCOUNTER 2022-04-09 02:02 | Outpatient (CLI) | payer MEDICARE, BC | END 2022-04-09 02:03 | disposition critical access hospital (66) | LOC: EMS 02:02 | DX: M54.50 Low back pain, unspecified (principal); M25.552 Pain in left hip; R53.1 Weakness | CPT/HCPCS: A0425; A0427 ==

== ENCOUNTER 2022-04-09 02:24 | Emergency (ER) | payer MEDICARE, BC ==
--- NOTE | 2022-04-09 04:04 | ED Physician Documentation ---
PD HPI BACK PAIN - Stated complaint Stated Complaint: BACK PX - Chief complaint Chief Complaint: Back Pain - History obtained from History obtained from: Patient - History of Present Illness Timing - onset: How many days ago (2) Location: Lower, Left Quality: Pain, Spasm Improves with: Rest Worsened by: Movement Recently seen: Not recently seen - Additional information Additional information: BIBA for c/o back pain. Patient developed gradual onset of left low back pain 2 days ago. She feels that the pain is due to activity the prior day that she says was unusually strenuous for her in terms of heavy lifting. She says she has had back pain before, including similar location (left lower back) although never this intense. Pain is distinctly worse with movement, improving with rest. The pain has become increasingly intense and frequent, requiring less provocation for exacerbation. Denies injury. Denies numbness, weakness, fever. EMS administered IV fentanyl 50 micograms and IV zofran 4 mg. Patient says she had improvement with these medications although she feels the pain medication is wearing off by the time of this evaluation Review of Systems Constitutional: denies: Fever, Chills, Sweats GI: denies: Abdominal Pain, Nausea, Vomiting : denies: Unable to Void, Incontinent Musculoskeletal: reports: Back pain Neurologic: denies: Generalized weakness, Focal weakness, Numbness PD PAST MEDICAL HISTORY - Past Medical History Past Medical History: Yes Cardiovascular: Hypertension Respiratory: Asthma Neuro: None Endocrine/Autoimmune: HyPOthyroidism GI: GI bleed HYDROLOGY TEACHER: None : None HEENT: None Psych: None Musculoskeletal: Osteoarthritis, Osteoporosis, Chronic back pain Derm: Other - Past Surgical History Past Surgical History: Yes General: Colonoscopy Ortho: Hip replacement, Knee replacement, Other /HYDROLOGY TEACHER: Hysterectomy - Present Medications Home Medications: Ambulatory Orders Medication Instructions Recorded Confirmed Levothyroxine Sodium 50 mcg PO DAILY 10/13/14 07/09/20 Montelukast [Singulair] 10 mg PO DAILY 10/13/14 07/09/20 Albuterol Sulfate [Proair Hfa 1 - 2 puffs INH Q4H PRN 05/26/20 07/09/20 Inhaler] Fluticasone/Salmeterol [Advair 1 puffs INH DAILY 05/26/20 07/09/20 100-50 Diskus] estradioL [Estrace] 1 mg PO DAILY 07/09/20 07/09/20 Cyclobenzaprine [Flexeril] 10 mg PO TID PRN #20 tablet 04/09/22 HYDROcod/ACETAM 5/325 [[place] 5/325] 1 tablet PO Q6H PRN #10 tablet 04/09/22 - Allergies Allergies/Adverse Reactions: Allergies Allergy/AdvReac Type Severity Reaction Status Date / Time No Known Drug Allergies Allergy Verified 04/09/22 02:32 - Social History Does the pt smoke?: No Smoking Status: Never smoker Does the pt drink ETOH?: Yes Does the pt have substance abuse?: No - Immunizations Immunizations are current?: Yes - POLST Patient has POLST: No PD ED PE NORMAL - Vitals Vital signs reviewed: Yes - General General: Alert and oriented X 3, No acute distress (NAD at rest but obvious painful distress with movement involving lower back ), Well developed/nourished - Cardiac Cardiac: RRR - Respiratory Respiratory: No respiratory distress, Clear bilaterally - Abdomen Abdomen: Normal bowel sounds, Soft, Non tender - Back Back: No CVA TTP, No spinal TTP - Derm Derm: Normal color, Warm and dry, No rash - Extremities Extremities: No edema - Neuro Neuro: No motor deficit, No sensory deficit (LTS intact LLE), Other (limited ROM left hip and lower back due to exacerbation of pain with movement) Results - Vitals Vitals: Oxygen O2 Source Room air - Rads (name of study) pelvis xray Radiology: Prelim report reviewed, EMP read indepedently, See rad report CT lumbar spine Radiology: Prelim report reviewed, Final report received, See rad report PD Medical Decision Making - ED course Complexity details: reviewed results, re-evaluated patient, considered differential, d/w patient ED course: Presents with left low back pain and spasm occurring the day after overexertion (patient describes repetitive lifting due to moving and getting groceries; she says it was unusually heavy lifting for her). She is given 0.5 mg IV dilaudid in ED as well as 10mg PO cyclobenzaprine. On reevaluation, she is sleeping, awakens to voice, reports significant improvement in symptoms as well as movement wit hout exacerbation of pain. pelvis xray shows bilateral hip prostheses without acute abnormality. CT lumbar spine shows moderate-severe DJD and scoliosis but no acute abnormality and no significant change compared to previous studies. Patient stayed in ED for several hours awaiting a ride in the AM. Prior to d/c she was able to slowly but steadily ambulate to the bathroom without assistance (ED staff was next to patient to prevent fall and help if she was unable to ambulate). Departure - Departure Disposition: 01 Home, Self Care Clinical Impression: Back pain Qualifiers: Back pain location: low back pain Chronicity: acute Back pain laterality: left Sciatica presence: without sciatica Qualified Code(s): M54.50 - Low back pain, unspecified Condition: Good Instructions: ED Neck Back Pain General Prescriptions: Cyclobenzaprine [Flexeril] 10 mg PO TID PRN #20 tablet PRN Reason: Spasms HYDROcod/ACETAM 5/325 [Fenn[place] 5/325] 1 tablet PO Q6H PRN #10 tablet PRN Reason: Pain Comments: There are no acute findings on the Xray and CT scan. Certainly there are multiple abnormalities on the CT scan of your lumbar spine, but these are not significantly changed from previous imaging (specifically, the radiologist compared tonight's CT to an MRI from July 01, [address] scan from May 24, 2018. At this point, your back pain might be due to the physical activity that immediately preceded it. You can use the provided prescriptions for pain medication (vicodin) and muscle relaxant (flexeril). Both of these can cause drowsiness; do not drive while taking these medications, and go slowly when standing and ambulating so as to minimize risk of losing balance and falling. Discharge Date/Time: 04/09/22 10:47
[2022-04-09] MEDS ORDERED: HYDROmorphone 1 MG/ML CARPUJECT IVP STA (04:28)
[2022-04-09] MEDS ORDERED: CYCLOBENZAPRINE 10 MG TABLET PO STA (04:28)
[2022-04-09 06:06] VITALS: BP 143/59
--- NOTE | 2022-04-09 09:35 | XRAY Report ---
PROCEDURE: Pelvis 1 View INDICATIONS: left hip pain TECHNIQUE: 1 view(s) of the pelvis acquired. COMPARISON: None. FINDINGS: Bones: Bilateral hip arthroplasties appear to be appropriate position. The pelvic ring is overall int act. Scattered degenerative changes, especially in the lumbar sacral spine CT findings are separately dictated. Soft tissues: Visualized bowel gas pattern is normal. No suspicious soft tissue calcifications. IMPRESSION: Bilateral hip arthroplasties. Scattered degenerative changes. No acute radiographic abno rmality. Agree with preliminary report. Reviewed by: Ras Hines MD on 04/09/2022 8:33 AM [facility] Approved by: Ras Hines MD on 04/09/2022 8:33 AM [facility] Station ID: [id number]
--- NOTE | 2022-04-09 09:39 | CT Report ---
PROCEDURE: LUMBAR SPINE WO INDICATIONS: left low back pain TECHNIQUE: Noncontrast 3 mm thick sections acquired from the T12 level to the sacrum. Sagittal and coronal refo rmats were constructed. For radiation dose reduction, the following was used: automated exposure co ntrol, adjustment of mA and/or kV according to patient size. COMPARISON: CT 05/24/2018 FINDINGS: Image quality: Excellent Bones: Moderate to severe degenerative changes.. Trace retrolisthesis spanning from L1 to L4. 7 mm of anterolisthesis of L4 on L5. Trace anterolisthesis of L5 on S1. Levoconvex spinal curvature with lat eral listhesis of L1 on L2. Endplate deformities likely degenerative in etiology. No evidence of acute traumatic subluxation or acute vertebral body height loss. Soft tissues: Cholelithiasis. No drainable abscess or hematoma. Intra-abdominal/intrapelvic structure s are not well evaluated. IMPRESSION: Degenerative changes as outlined above with scoliosis and multilevel spondylolisthesis without defini te acute fracture or traumatic subluxation. Agree with preliminary report. Reviewed by: Ras Hines MD on 04/09/2022 8:38 AM [place] Approved by: Ras Hines MD on 04/09/2022 8:38 AM [facility] Station ID: [id number]
== END 2022-04-09 10:47 | disposition home or self-care (01) ==
LOC: EDUNIT# → ED 02:24
DX: M54.50 Low back pain, unspecified (principal)
CPT/HCPCS: 72131; 72170; 96374; 99284; A9270; J1170

== ENCOUNTER 2023-10-14 06:59 | Outpatient (CLI) | payer MEDICARE, BC | END 2023-10-14 23:59 | disposition critical access hospital (66) | LOC: EMS 06:59 | PROVIDERS: ATTEND Emergency Medicine | DX: M54.50 Low back pain, unspecified (principal); M53.3 Sacrococcygeal disorders, not elsewhere classified; R03.0 Elevated blood-pressure reading, without diagnosis of hypertension | CPT/HCPCS: A0425; A0429 ==

== ENCOUNTER 2023-10-14 07:20 | Emergency (ER) | payer MEDICARE, BC ==
[2023-10-14] MEDS: SODIUM CHLORIDE 0.9% 1,000 ML IV STA (07:50)
[2023-10-14] MEDS: KETOROLAC 15 MG/ML VIAL IVP STA (07:50)
[2023-10-14] MEDS: HYDROmorphone 0.5 MG/0.5 ML SYRINGE IVP STA (07:50)
[2023-10-14 08:02] LABS: BASOPHILS # (AUTO) 0.1 10^3/uL (0.0-0.1); EOSINOPHILS # (AUTO) 0.3 10^3/uL (0.0-0.7); EOSINOPHILS % (AUTO) 3.9 %; HGB - HEMOGLOBIN 11.8 g/dL (12.0-16.0); LYMPHOCYTES # (AUTO) 1.5 10^3/uL (1.5-3.5); LYMPHOCYTES % (AUTO) 22.4 %; MEAN CORPUSCULAR HEMOGLOBIN 29.1 pg (27.0-31.0); MEAN CORPUSCULAR HGB CONC 31.9 g/dL (32.0-36.0); MEAN CORPUSCULAR VOLUME 91.1 fL (81.0-99.0); MEAN PLATELET VOLUME 9.6 fL (7.9-10.8); MONOCYTES # (AUTO) 0.7 10^3/uL (0.0-1.0); MONOCYTES % (AUTO) 10.5 %; NEUTROPHILS # (AUTO) 4.1 10^3/uL (1.5-6.6); NEUTROPHILS % (AUTO) 61.9 %; PLT - PLATELET COUNT 219 10^3/uL (130-450); RED BLOOD COUNT 4.06 10^6/uL (4.20-5.40); RED CELL DISTRIBUTION WIDTH 15.5 % (12.0-15.0); WHITE BLOOD COUNT 6.7 x10^3/uL (4.8-10.8)
--- NOTE | 2023-10-14 08:09 | ED Physician Documentation ---
PD HPI BACK PAIN - Stated complaint Stated Complaint: HIP/BACK PX - Chief complaint Chief Complaint: Back Pain - History obtained from History obtained from: Patient - History of Present Illness Timing - onset: How many weeks ago (3) Timing - duration: Weeks (3) Timing - details: Gradual onset, Still present, Waxing and waning (does not have pain much during days with activity, but very painful at night in particular.) Associated symptoms: No: Fever, Weakness, Numbness, Incontinent of urine Improves with: No: Rest, Meds (ASA, which she was taking regularly at home for past 2-3 days.) Worsened by: Movement, Twisting Contributing factors: No: Lifting, Twisting, Trauma Similar symptoms before: Has not had sx before Review of Systems Constitutional: denies: Fever, Chills Cardiac: denies: Chest pain / pressure Respiratory: denies: Dyspnea, Cough GI: denies: Abdominal Pain, Vomiting, Constipation, Diarrhea, Bloody / black stool : denies: Dysuria, Frequency PD PAST MEDICAL HISTORY - Past Medical History Cardiovascular: Hypertension Respiratory: Asthma Neuro: None Endocrine/Autoimmune: HyPOthyroidism GI: GI bleed BLOCK TRIMMER: None : None HEENT: None Psych: None Musculoskeletal: Osteoarthritis, Osteoporosis, Chronic back pain Derm: Other - Past Surgical History Past Surgical History: Yes General: Colonoscopy Ortho: Hip replacement, Knee replacement, Other /BLOCK TRIMMER: Hysterectomy - Present Medications Home Medications: Ambulatory Orders Medication Instructions Recorded Confirmed Levothyroxine Sodium 50 mcg PO DAILY 10/13/14 07/09/20 Montelukast [Singulair] 10 mg PO DAILY 10/13/14 07/09/20 Albuterol Sulfate [Proair Hfa 1 - 2 puffs INH Q4H PRN 05/26/20 07/09/20 Inhaler] Fluticasone Propion/Salmeterol 1 puffs INH DAILY 05/26/20 07/09/20 [Advair 100-50 Diskus] estradioL [Estrace] 1 mg PO DAILY 07/09/20 07/09/20 Cyclobenzaprine [Flexeril] 10 mg PO TID PRN #20 tablet 04/09/22 HYDROcod/ACETAM 5/325 [[place] 5/325] 1 tablet PO Q6H PRN #10 tablet 04/09/22 Acetaminophen [Acetaminophen Extra 500 mg PO QID PRN #50 tablet 10/14/23 Strength] Diclofenac Sodium 1% Gel [Voltaren 2 gm TOP TID #50 gm 10/14/23 Gel] Docusate Sodium 100Mg Capsule 100 mg PO DAILY #20 cap 10/14/23 [Colace 100Mg Capsule] Famotidine [Pepcid] 20 mg PO DAILY #20 tablet 10/14/23 HYDROcod/ACETAM 5/325 [[place] 5/325] 1 ea PO Q6H PRN #18 tablet 10/14/23 Lidocaine Patch 5% [Lidoderm Patch] 1 patch TOP DAILY PRN #10 patch 10/14/23 Sucralfate [Carafate] 1 gm PO BID 10 Days #200 ml 10/14/23 - Allergies Allergies/Adverse Reactions: Allergies Allergy/AdvReac Type Severity Reaction Status Date / Time No Known Drug Allergies Allergy Verified 04/09/22 02:32 - Social History Does the pt smoke?: No Smoking Status: Never smoker Does the pt drink ETOH?: Yes Does the pt have substance abuse?: No - Immunizations Immunizations are current?: Yes - POLST Patient has POLST: No PD ED PE NORMAL - Vitals Vital signs reviewed: Yes - General General: Alert and oriented X 3, Other (appears in pain with low back movement, with wincing as if spasms.). No: Well developed/nourished (frail appearing and thin.) - Cardiac Cardiac: RRR, No murmur - Respiratory Respiratory: No respiratory distress, Clear bilaterally - Abdomen Abdomen: Soft, Non tender, Other (aortic pulsations are prominent but pt so thin that likely normal for habitus. Does not feel enlarged. ) - Back Back: Other (tender to palpation in paralumbar muscles and to percussion in lower lumbar spine. No rash nor sores. ) - Derm Derm: Normal color, Warm and dry, No rash - Extremities Extremities: No edema, No calf tenderness / cord - Neuro Neuro: Alert and oriented X 3, No motor deficit, No sensory deficit Results - Vitals Vitals: Vital Signs - 24 hr 10/14/23 10/14/23 10/14/23 07:25 09:44 11:00 Temperature 36.0 C L Heart Rate 84 80 75 Respiratory 22 18 20 Rate Blood Pressure 219/91 H 209/75 H 198/82 H O2 Saturation 98 100 98 If not protocol 3 4 : Oxygen Flow, liters/minute 10/14/23 10/14/23 12:31 16:56 Temperature 36.5 C Heart Rate 81 80 Respiratory 22 20 Rate Blood Pressure 217/76 H 210/72 H O2 Saturation 100 99 If not protocol : Oxygen Flow, liters/minute Oxygen O2 Source Nasal cannula - Labs Labs: Laboratory Tests 10/14/23 10/14/23 10/14/23 07:48 07:48 09:00 WBC 6.7 RBC 4.06 L Hgb 11.8 L Hct 37.0 MCV 91.1 MCH 29.1 MCHC 31.9 L RDW 15.5 H Plt Count 219 MPV 9.6 Neut # (Auto) 4.1 Lymph # (Auto) 1.5 [place] # (Auto) 0.7 Eos # (Auto) 0.3 Baso # (Auto) 0.1 Absolute Nucleated RBC 0.00 Nucleated RBC % 0.0 Sodium 137 Potassium 4.6 H Chloride 102 Carbon Dioxide 27 Anion Gap 8.0 BUN 37 H Creatinine 1.3 Estimated GFR (MDRD) 39 L Glucose 88 Calcium 9.4 Magnesium 1.8 Total Bilirubin 0.4 AST 28 ALT 13 Alkaline Phosphatase 64 Total Protein 6.7 Albumin 3.9 Globulin 2.8 Albumin/Globulin Ratio 1.4 Lipase 60 Urine Color YELLOW Urine Clarity CLEAR Urine pH 7.0 Ur Specific [place] 1.015 Urine Protein NEGATIVE Urine Glucose (UA) NEGATIVE Urine Ketones NEGATIVE Urine Occult Blood NEGATIVE Urine Nitrite NEGATIVE Urine Bilirubin NEGATIVE Urine Urobilinogen 0.2 (NORMAL) Ur Leukocyte Esterase NEGATIVE Ur Microscopic Review NOT INDICATED Urine Culture Comments NOT INDICATED - Rads (name of study) lumbar CT Relevant Findings:: Prelim report reviewed (moderate to severe spondylolisthesis and scoliosis. Arthritic changes. ), EMP independent interpretation of test abd/pelvic CT Relevant Findings:: Prelim report reviewed (gallstones and sl enlarged CBD. correlate clinically. moderate stool load. inflammation around the stomach area. l), EMP independent interpretation of test PD Medical Decision Making - ED course Complexity details: reviewed results (We will get a CT scan of her lumbar spine to evaluate for the pain and radiculitis symptoms. However given the hypertension, I also would scan abdomen pelvis to look for organ dysfunction, vascular process etc.), re-evaluated patient, considered differential (Patient has had back pain for the last 3 weeks without noted injury. Mainly noticed at night. Minimal pain during the day and with activity. Has been using aspirin and some Tylenol. The pain was much worse last night into this morning. Noted hypertensive but patient states she is typically is. ), d/w patient ED course: considerabel pain abruptly low back so consider stress fracture, disc process, etc. I feel imaging CT is crucial to eval for these. Also hypertensive likely due to pain but pt states comonly 150-[address] will eal for aortic proc ess. CT did not show any changes as cause for thepain. pt improved pain with IV meds but did get nauseated with the meds. Given antiemetic. Pain now mild to moderate but she is unable to get up on her own until meds Sh then was tired and generall weak, with dozing and sleeping for several hours. Presumption somnolent from no sleep but also sedating effect of the meds. Pt slept with nursing reassess and was able to rouse and remain only moderately conversation Departure - Departure Disposition: 01 Home, Self Care Clinical Impression: Lumbar back pain, Elevated blood pressure reading, Sciatic leg pain, Gastritis Condition: Stable Record reviewed to determine appropriate education?: Yes Instructions: ED Sciatica Follow-Up: Giovani Tan MD [Provider Admit Priv/Credential] - Prescriptions: Acetaminophen [Acetaminophen Extra Strength] 500 mg PO QID PRN #50 tablet PRN Reason: Pain Sucralfate [Carafate] 1 gm PO BID 10 Days #200 ml Docusate Sodium 100Mg Capsule [Colace 100Mg Capsule] 100 mg PO DAILY #20 cap Lidocaine Patch 5% [Lidoderm Patch] 1 patch TOP DAILY PRN #10 patch PRN Reason: pain HYDROcod/ACETAM 5/325 [[place] 5/325] 1 ea PO Q6H PRN #18 tablet PRN Reason: Pain Famotidine [Pepcid] 20 mg PO DAILY #20 tablet Diclofenac Sodium 1% Gel [Voltaren Gel] 2 gm TOP TID #50 gm Comments: The CT scan of your spine shows quite notable misalignment chronically of the spine (the scoliosis as well as anterior misalignment called spondylolisthesis). These are lifelong abnormalities like the scoliosis or developmental with looseness of the ligaments with aging. At some point the misalignment as well as arthritis in the spine can start putting pressure on some of the nerve roots and causing pain such as you are having. Repair of these would certainly be quite an undertaking but there can be some interventions locally in the spine such as injections etc. Follow-up with your primary care and perhaps a referral to a back specialist for further evaluation. Meanwhile we will treat with a combination of some anti- inflammatories as well as pain medicine. Your CT scan also showed some inflammation of the stomach with lining in the area around it. This may be some inflammation related to a stomach flu or such but I be concerned about the aspirin that you take causing an ongoing irritation. With the CT finding of the inflammation around the stomach, I would suggest no aspirin or NSAIDs. I did also suggest some acid reducing medicine such as famotidine and antacid such as Mylanta or sacral fate a couple of times daily. We would want to use for your back pain, Tylenol 500 to 650 mg regularly for the next week or 2 4 times a day. To that you could also add lidocaine patches to the area that is hurting in the back to try to get a local effect and some Voltaren/diclofenac gel twice daily to the area as well. This would try to minimize the effect of irritation in your stomach. To that add a stool softener daily and hydrocodone pain medicine every 4-6 hours for worse pain. I sent your prescriptions to your preferred pharmacy. We did give you some IV pain medicine here which seem to have decreased the pain though it did make you a little bit "goofy" but that is improving as the medicine is wearing down. I would not anticipate that much effect from the oral medicine. I am prescribing a short course of narcotic pain medication for you. These are potentially dangerous and addictive medications that should be used carefully. These medications may constipate you. Take an [id number] stool softener s uch as docusate twice daily with plenty of water while taking these medications. If you go 24 hours without a bowel movement, take [id number] MiraLAX, per package instructions. Do not drink or drive while taking these medications. If you received narcotic or sedating medications while in the emergency department do not drive for 24 hours. Store this medication in a safe, secure place and out of reach of children. It is a violation of federal law to give or sell this medication to another person or to use in a manner other than prescribed. The ED will not refill narcotic prescriptions, including prescriptions lost or stolen. You can dispose of unwanted medications at the [facility]'s office or at several pharmacies such as [facility]. Discharge Date/Time: 10/14/23 18:06
[2023-10-14 08:14] LABS: MAGNESIUM 1.8 mg/dL (1.7-2.3)
[2023-10-14 08:21] LABS: ALBUMIN 3.9 g/dL (3.2-5.5); ALBUMIN/GLOBULIN RATIO 1.4 (1.0-2.2); BILIRUBIN,TOTAL 0.4 mg/dL (0.2-1.0); CALCIUM 9.4 mg/dL (8.5-10.3); CREATININE 1.3 mg/dL (0.6-1.3); POTASSIUM 4.6 mmol/L (3.5-4.5); TOTAL PROTEIN 6.7 g/dL (6.4-8.9)
[2023-10-14] MEDS ORDERED: iohexoL-300 100 ML VIAL ONE (08:27)
[2023-10-14] MEDS: iohexoL-300 100 ML VIAL IVP ONE (08:53)
[2023-10-14 09:13] LABS: BILIRUBIN,URINE NEGATIVE (NEGATIVE); CLARITY,URINE CLEAR (CLEAR); GLUCOSE, URINE (UA) NEGATIVE (NEGATIVE); KETONES,URINE (UA) NEGATIVE (NEGATIVE); LEUKOCYTE ESTERASE, URINE NEGATIVE (NEGATIVE); NITRITE,URINE NEGATIVE (NEGATIVE); OCCULT BLOOD,URINE NEGATIVE (NEGATIVE); PROTEIN,URINE NEGATIVE (NEGATIVE); UROBILINOGEN,URINE 0.2 (NORMAL) E.U./dL (NORMAL)
--- NOTE | 2023-10-14 09:29 | CT Report ---
PROCEDURE: Abdomen/Pelvis W INDICATIONS: low back pain, hypertensive CONTRAST: 100ml omni 300 TECHNIQUE: After the administration of intravenous contrast, a CT scan of the abdomen and pelvis was performed. Images were recorded and evaluated at appropriate window settings. Reformats: coronal and sagittal. F or radiation dose reduction, the following was used: automated exposure control, adjustment of mA and /or kV according to patient size. COMPARISON: 05/24/2018 FINDINGS: Image quality: Diagnostic Lower chest: Bibasilar scarring/atelectasis at the bases. Mild wall thickening at the distal esophagu s. There is cardiomegaly. Possible coronary calcifications. Liver: No discrete solid lesion Gallbladder and biliary system: Cholelithiasis. Dilated CBD up to 8 mm. This is increased from prior imaging Pancreas: Mildly ectatic pancreatic duct is similar to prior imaging. No discrete hypervascular lesio n Spleen: Nonenlarged Adrenals: No discrete nodules Kidneys: No solid mass or hydronephrosis Vessels and lymph nodes: The main portal vein is patent. No abdominal aortic aneurysm. No pathologic lymph nodes by size criteria. Bowel and peritoneum: Nonspecific edema and fat stranding in the upper abdomen, particularly around t he stomach and mesenteric root. There is no drainable ascites. No evidence of small bowel obstruction . There is possible evidence of pelvic descent. A possible nondilated appendix is seen in the central abdomen. There is moderate fecal loading proximally. No abscess. Body wall: Mild diffuse anasarca. Pelvis: Obscured by metallic artifact. Bladder is grossly unremarkable. Uterus is either absent or no t well seen. Bones: No pelvic ring disruption. Hip arthroplasties. Lumbar spine findings are separately dictated. IMPRESSION: Cholelithiasis. Mild biliary ductal dilation. Correlate with LFTs and consider ultrasound and MRCP. Choledocholithiasis is possible. Nonspecific edematous changes in the upper abdomen particularly around the stomach and mesenteric meng t, possibly gastroenteritis and mesenteritis. No drainable abscess or ascites. Moderate fecal loading in the proximal colon. Other findings as above. Reviewed by: Ras Hines MD on 10/14/2023 9:27 AM PDT Approved by: Ras Hines MD on 10/14/2023 9:27 AM PDT Station ID: [id number]
--- NOTE | 2023-10-14 09:32 | CT Report ---
PROCEDURE: Lumbar Spine WO INDICATIONS: low back pain TECHNIQUE: Noncontrast 3 mm thick sections acquired from the T12 level to the sacrum. Sagittal and coronal refo rmats were constructed. For radiation dose reduction, the following was used: automated exposure co ntrol, adjustment of mA and/or kV according to patient size. COMPARISON: 04/09/2022 05/24/2018 FINDINGS: Image quality: Diagnostic Bones: Vertebral body heights are well-maintained. Moderate to severe degenerative changes and multil evel spondylolisthesis, similar to prior. No traumatic subluxation. Mild height loss of the T11 verte bral body with less than 50% compression at the superior endplate. This is new compared to 2019. Moderate leftward scoliosis. Soft tissues: Better assessed on CT abdomen pelvis dictation IMPRESSION: Mild height loss at the T11 vertebral body may be acute, less than 50%. Moderate to severe spondylosis, multilevel spondylolisthesis, and leftward scoliosis. If there is high concern for further derangement, consider MRI evaluation. Reviewed by: Ras Hines MD on 10/14/2023 9:30 AM PDT Approved by: Ras Hines MD on 10/14/2023 9:30 AM PDT Station ID: [id number]
[2023-10-14] MEDS: HYDROmorphone 1 MG/ML CARPUJECT IVP STA (09:35)
[2023-10-14] MEDS: ONDANSETRON 4 MG/2 ML VIAL IVP STA (10:33)
[2023-10-14] MEDS: ACETAMINOPHEN 500 MG TABLET PO STA (15:44)
[2023-10-14] MEDS: LIDOCAINE PATCH 5% TOP STA (15:44)
[2023-10-14 17:00] VITALS: BP 210/72; O2SAT 99
== END 2023-10-14 18:06 | disposition home or self-care (01) ==
LOC: EDUNIT# → ED 07:20
DX: M54.40 Lumbago with sciatica, unspecified side (principal); I10 Essential (primary) hypertension; K29.70 Gastritis, unspecified, without bleeding; R11.0 Nausea
CPT/HCPCS: 36415; 72131; 74177; 80053; 81003; 83690; 83735; 85025; 96374; 96375; 96376; 99284; A9270; J1170; Q9967; 81001; 87086

== ENCOUNTER 2023-10-22 16:50 | Outpatient (CLI) | payer MEDICARE, BC | END 2023-10-22 23:59 | disposition short-term general hospital (02) | LOC: EMS 16:50 | DX: M25.552 Pain in left hip (principal); W18.11XA Fall from or off toilet without subsequent striking against object, initial encounter; Y92.002 Bathroom of unspecified non-institutional (private) residence as the place of occurrence of the external cause; R41.0 Disorientation, unspecified | CPT/HCPCS: A0425; A0429 ==